=== PATIENT | male | born 1950 | race Caucasian/White ===

== ENCOUNTER 2017-09-04 13:41 | Inpatient (IN) | payer OTHER, MEDICARE ==
[~2017-09-04] VITALS: Ht 170.2 cm; Wt 81.8 kg
[~2017-09-04 13:41] MED LIST: LISINOPRIL AND1 TA1 PO
--- NOTE | 2017-09-04 13:51 | ED GENERAL ADULT ---
History of Present Illness General Chief Complaint: Syncope and Near-Syncope Stated Complaint: BIBA WITH SYNCOPE Source: patient, family Exam Limitations: no limitations Vital Signs & Intake/Output Vital Signs & Intake/Output Vital Signs Date Time Temp Pulse Resp B/P B/P Pulse O2 O2 Flow FiO2 Mean Ox Delivery Rate 09/04 1920 99.5 74 16 96/62 93 Room Air 09/04 1549 94 Room Air 09/04 1549 75 18 101/57 94 Room Air 09/04 1547 75 101/57 09/04 1351 100.7 80 18 103/59 94 Room Air Allergies Coded Allergies: NO KNOWN ALLERGIES (01/18/17) Reconcile Medications Lisinopril/Hydrochlorothiazide (Lisinopril-Hctz 20-12.5 MG Tab) 20 MG-12.5 MG TABLET 1 TAB PO BID BP (Reported) Magnesium Oxide (Magnesium) 400 MG CAPSULE 1 CAP PO BID SUPPLEMENT (Reported) Triage Nurses Notes Reviewed? yes Onset: Abrupt Duration: minute(s): Timing: single episode today Injury Environment: home Severity: moderate HPI: 66YO MALE with hx of hepatitis C BIBA to ED following syncopal episode at home prior to arrival. Patient states that he has had intermittent cough and congestion for the past month. He was treated with a course of antibiotics from his primary care doctor last month and felt improvement however his symptoms have returned. Patient currently complaining of cough productive of sputum which he cannot spit out. Patient reports intermittent fevers, chills, malaise. He is also experiencing weakness and lightheadedness when he gets up and stands after sitting. Today he was going to see his primary care doctor for the symptoms. He was sitting on a chair in a stack waiting for his when he passed out. Patient states that she was honking the car horn however he could not hear her because he passed out for seconds to a minute. found him and called for help. Patient did not fall or hit his head. He does report a generalized headache for the past 3 days. The patient denies abdominal pain, nausea, vomiting, diarrhea, chest pain, dyspnea, urinary symptoms. (Modesta NORWOOD,Magaly Rivera) Past History Travel History Traveled to [place] past 21 day No Medical History Any Pertinent Medical History? see below for history Hepatic: hepatitis C Surgical History Surgical History: non-contributory Psychosocial History What is your primary language Somali Family History Hx Contributory? No (Magaly Bush) Review of Systems Review of Systems Constitutional: Reports: see HPI. EENTM: Reports: see HPI. Respiratory: Reports: see HPI. Cardiovascular: Reports: see HPI. GI: Reports: no symptoms. Genitourinary: Reports: no symptoms. Musculoskeletal: Reports: no symptoms. Skin: Reports: no symptoms. Neurological/Psychological: Reports: see HPI. Hematologic/Endocrine: Reports: no symptoms. Immunologic/Allergic: Reports: no symptoms. All Other Systems: Reviewed and Negative (Modesta NORWOOD,Magaly Rivera) Physical Exam Physical Exam General Appearance: well developed/nourished, no apparent distress, alert, awake Head: atraumatic, normal appearance Eyes: Bilateral: normal appearance, PERRL, EOMI. Ears, Nose, Throat: normal pharynx, normal ENT inspection, hearing grossly normal Neck: normal inspection, supple, full range of motion Respiratory: normal breath sounds, no respiratory distress, lungs clear Cardiovascular: regular rate/rhythm, normal peripheral pulses Peripheral Pulses: 2+ radial (R), 2+ radial (L) Gastrointestinal: normal bowel sounds, soft, non-tender, no organomegaly Back: normal inspection, normal range of motion Extremities: normal inspection, normal range of motion, no edema Neurologic/Psych: no motor/sensory deficits, awake, alert, oriented x 3, vice president of human resources II- XII nml as tested Skin: intact, normal color, warm/dry Core Measures ACS in differential dx? Yes CVA/TIA Diagnosis: No Sepsis Present: No Sepsis Focused Exam Completed? No (Magaly Bush) Progress Differential Diagnoses I considered the following diagnoses in my evaluation of the patient: [Vasovagal syncope, orthostatic hypotension, acute coronary syndrome, sepsis, pneumonia, urinary tract infection, acute kidney injury, electrolyte abnormality, arrhythmia, endocarditis] Plan of Care: Orders Procedure Date/time Status Regular Diet 09/05 B Active CBC WITHOUT DIFFERENTIAL 09/05 06 Active BASIC ELECTROLYTES PLUS BUN&CR 09/05 0600 Active Vital Signs 09/04 1920 Active Pathway - chart 09/04 1748 Active House Staff 09/04 1748 Active MISTAKE 09/04 1703 Active Patient Data 09/04 1637 Active ED Holding Orders 09/04 1627 Active Admit to inpatient 09/04 1627 Active Code Status 09/04 1627 Active Intake & Output 09/04 1547 Active BLOOD CULTURE 09/04 1529 Active Add-on Test (ER Only) 09/04 1455 Active LACTIC ACID 09/04 1432 Complete MISTAKE 09/04 1344 Active URINALYSIS 09/04 1344 Active TROPONIN LEVEL 09/04 1344 Complete MAGNESIUM 09/04 1344 Complete COMPREHENSIVE METABOLIC PANEL 09/04 1344 Complete CBC WITHOUT DIFFERENTIAL 09/04 1344 Complete EKG 09/04 1344 Active VTE Mechanical Prophylaxis 09/04 UNK Active Current Medications Sig/Nereida Start time Last Medication Dose Stop Time Status Admin Magnesium Oxide 400 MG BID 09/04 2100 AC (Mag-Ox) Sodium Chloride 1,000 ML DAILY 09/04 1800 AC (Normal Saline 0.9%) 09/05 2219 Laboratory Tests 09/04/17 1432: Anion Gap 13, Estimated GFR 43 L, BUN/Creatinine Ratio 16.9, Glucose 113 H, Lactic Acid 0.9, Calcium 9.1, Magnesium 1.9, Total Bilirubin 1.1, AST 66 H, ALT 63, Alkaline Phosphatase 70, Troponin I < 0.01, Total Protein 7.7, Albumin 4.2, Globulin 3.5, Albumin/Globulin Ratio 1.2, CBC w Diff MAN DIFF ORDERED, RBC 4.96, MCV 91.5, MCH 31.8 H, MCHC 34.8, RDW 12.4, MPV 7.8, Gran % 87.2 H, Lymphocytes % 6.8 L, Monocytes % 5.6, Eosinophils % 0, Basophils % 0.4, Absolute Granulocytes 5.4, Segmented Neutrophils 80 H, Band Neutrophils 7 H, Absolute Lymphocytes 0.4 L, Lymphocytes 9 L, Monocytes 3, Absolute Monocytes 0.3, Eosinophils 1, Absolute Eosinophils 0, Absolute Basophils 0, Platelet Estimate VERIFIED BY SMEAR, Normocytic RBCs VERIFIED, Normochromic RBCs VERIFIED Microbiology 09/04 1709 BLOOD: Blood Culture - RECD 09/04 1650 BLOOD: Blood Culture - RECD Patient's head CT is WNL, he is neurologically intact without focal neurologic deficit. Chest x-ray shows no acute abnormality. Patient's orthostatic vital signs are positive, when he stood from sitting he had a near syncopal episode here in the ED and required assistance from JANEEN Spann and Dr. Guillen. Labs show bandemia and acute kidney injury. Patient is medicated with IV fluids. Given acute kidney injury, bandemia, syncopal episode at home today, orthostatic hypotension this patient requires hospital admission for further evaluation, IV fluids, possible IV antibiotics, cardiology consult, telemetry monitoring, possible infectious disease consult. The patient was seen and evaluated by Dr. Guillen who agrees with this plan. Case management recommend full admission. Spoke with hospitalist Dr. Knox regarding this patient's telemetry admission. Diagnostic Imaging: Viewed by Me: Radiology Read, CT Scan. Discussed w/RAD: Radiology Read, CT Scan. Radiology Impression: PATIENT: IRINA BOOTH PRESENT AGE: 66 PATIENT ACCOUNT NO: [id number] : 50 LOCATION: [facility] ORDERING PHYSICIAN: Magaly NORWOOD SERVICE DATE: 09/04/17 EXAM TYPE: CAT - CT HEAD WO IV CONTRAST EXAMINATION: CT HEAD WITHOUT CONTRAST CLINICAL INFORMATION: Headache with syncopal episode. COMPARISON: No relevant prior imaging. TECHNIQUE: Contiguous axial imaging was performed from the skull base to vertex without intravenous administration of contrast. DLP: 615.08 mGy-cm FINDINGS: There is no acute intracranial hemorrhage or abnormal extra-axial collection. No intracranial mass effect or midline shift. Lateral and third ventricles are normal. No hydrocephalus. Bledsoe-white matter differentiation is grossly preserved and there is no evidence of acute territorial infarct. The calvarium and skull base are intact. Mastoid air cells and middle ear cavities are well aerated. Visualized paranasal sinuses are well-aerated. IMPRESSION: Normal CT scan of the head. DICTATED BY: Phil Ordoñez MD DATE/TIME DICTATED:09/04/171426 U.S. COMMISSIONER:RITA DATE/TIME TRANSCRIBED:1426 CONFIDENTIAL, DO NOT COPY WITHOUT APPROPRIATE AUTHORIZATION. < Electronically signed in Other Vendor System> SIGNED BY: Phil Ordoñez MD 09/04/17 1432 CXR Impression: PATIENT: IRINA BOOTH PRESENT AGE: 66 PATIENT ACCOUNT NO: [id number] : 50 LOCATION: [facility] ORDERING PHYSICIAN: Magaly NORWOOD SERVICE DATE: 09/04/17 EXAM TYPE: RAD - XRY-CHEST XRAY, TWO VIEWS EXAMINATION: XR CHEST CLINICAL INFORMATION: Cough and syncope. COMPARISON: Chest 05/25/2015 TECHNIQUE: 2 views of the chest were obtained. FINDINGS: No significant abnormality is noted involving the heart, lungs, mediastinum, bony thorax or soft tissues. IMPRESSION: Unremarkable chest examination. DICTATED BY: Cl Mckeon MD DATE/TIME DICTATED:09/04/171433 U.S. COMMISSIONER:RITA DATE/TIME TRANSCRIBED:09/04/171433 CONFIDENTIAL, DO NOT COPY WITHOUT APPROPRIATE AUTHORIZATION. <Electronically signed in Other Vendor System> SIGNED BY: Cl Mckeon MD 09/04/17 1451 Initial ED EKG: sinus rhythm @81bpm, nonspecific ST changes Prior EKG: unchanged (08/21/13) (Magaly Bush) Departure Departure Disposition: STILL A PATIENT Condition: Stable Clinical Impression Primary Impression: Acute kidney injury Secondary Impressions: Bandemia Orthostatic hypotension Syncope Qualifiers: Syncope type: unspecified Qualified Code: R55 - Syncope and collapse Referrals: Aniket Hayward MD (PCP/Family) Departure Forms: Customer Survey General Discharge Information Admission Note Spoke With: June Knox MD Documentation of Exam: Documentation of any treatments & extenuating circumstances including Concerns Regarding Discharge (functional status, medication knowledge or non-compliance, living conditions, etc.) that warrant an admission rather than observation: [ acute kidney injury, bandemia, syncopal episode at home today, orthostatic hypotension requiring hospital admission for further evaluation, IV fluids, possible IV antibiotics, cardiology consult, telemetry monitoring, possible infectious disease consult.] (Magaly Bush) PA/CENTRAL LAB TECHNICIAN Co-Sign Statement Statement: ED Attending supervision documentation- [X] I saw and evaluated the patient. I have also reviewed all the pertinent lab results and diagnostic results. I agree with the findings and the plan of care as documented in the PA's/CENTRAL LAB TECHNICIAN's documentation. [] I have reviewed the ED Record and agree with the PA's/CENTRAL LAB TECHNICIAN's documentation. [] Additions or exceptions (if any) to the PAs/CENTRAL LAB TECHNICIAN's note and plan are summarized below: [] (Irving Guillen DO) Critical Care Note Critical Care Note Critical Care Time: 30-74 min (Magaly Bush)
--- NOTE | 2017-09-04 14:32 | CT SCAN REPORT ---
EXAMINATION: CT HEAD WITHOUT CONTRAST CLINICAL INFORMATION: Headache with syncopal episode. COMPARISON: No relevant prior imaging. TECHNIQUE: Contiguous axial imaging was performed from the skull base to vertex without intravenous administration of contrast. DLP: 615.08 mGy-cm FINDINGS: There is no acute intracranial hemorrhage or abnormal extra-axial collection. No intracranial mass effect or midline shift. Lateral and third ventricles are normal. No hydrocephalus. Bledsoe-white matter differentiation is grossly preserved and there is no evidence of acute territorial infarct. The calvarium and skull base are intact. Mastoid air cells and middle ear cavities are well aerated. Visualized paranasal sinuses are well-aerated. IMPRESSION: Normal CT scan of the head.
[2017-09-04 14:44] LABS: ABSOLUTE BASOPHIL COUNT 0 /CUMM (0.0-0.2); ABSOLUTE EOSINOPHIL COUNT 0 /CUMM (0.0-0.7); ABSOLUTE GRANULOCYTE CT 5.4 /CUMM (1.4-6.5); ABSOLUTE LYMPH COUNT 0.4 /CUMM (1.2-3.4); ABSOLUTE MONOCYTE COUNT 0.3 /CUMM (0.10-0.60); BASOPHIL % 0.4 % (0.0-2.0); EOSINOPHIL % 0 % (0-5); GRANULOCYTE % 87.2 % (42.2-75.2); HEMATOCRIT 45.4 % (42-52); MEAN CORPUSCULAR HGB 31.8 PG (27.0-31.0); MEAN CORPUSCULAR HGB CONC 34.8 G/DL (33.0-37.0); MEAN CORPUSCULAR VOLUME 91.5 FL (80.0-94.0); MEAN PLATELET VOLUME 7.8 FL (7.4-10.4); PLATELET COUNT 138 /CUMM (130-400); RBC DISTRIBUTION WIDTH 12.4 % (11.5-14.5); RED BLOOD CELL CT 4.96 /CUMM (4.70-6.10); WHITE BLOOD CELL COUNT 6.2 /CUMM (4.8-10.8)
--- NOTE | 2017-09-04 14:51 | RADIOLOGY REPORT ---
EXAMINATION: XR CHEST CLINICAL INFORMATION: Cough and syncope. COMPARISON: Chest 05/25/2015 TECHNIQUE: 2 views of the chest were obtained. FINDINGS: No significant abnormality is noted involving the heart, lungs, mediastinum, bony thorax or soft tissues. IMPRESSION: Unremarkable chest examination.
[2017-09-04] MEDS ORDERED: MAGNESIUM400 M1 PO (16:47)
[2017-09-04] MEDS ORDERED: LISINOPRIL-HCT1 EACH PO (16:48)
--- NOTE | 2017-09-04 18:46 | History & Physical ---
Marie SAAVEDRA,Latasha 09/04/17 2855: General Information and HPI Source of Information: patient, family Exam Limitations: no limitations History of Present Illness: Patient is 66-year-old male with past medical history of hypertension, palpitations (previous history of stress test which was reportedly negative), hepatitis C status post recent Harvoni treatment (sees Dr. Yeung) presenting this admission with chief complaint of episode of syncope. Patient reports that approximately 2 days prior to admission he was starting to feel dizzy. He reports that he felt he might be having cold with a dry cough and generalized headache and fever of 100.9. Patient states that he was feeling worse today and was going to his physician's office. Reports that when he was outside of his house he felt warm, dizzy and lightheaded and sat down in a chair on his porch. Patient's was present at time of interview and reports that she saw him slumped over in the chair at which point she walked over and found that he was not responsive for several minutes. After which patient reported to verbal and tactile stimuli. Patient denies feeling disoriented, bowel/bladder incontinence. Patient's denies witnessing any seizure like activity. Patient reports having poor appetite over the past week. Patient denies chest pain, palpitations, shortness of breath, blurry vision, n/v/c/d, dysuria/ hematuria. Patient denies sick contacts or recent travel. Denies smoking, alochol or illicit drug use. Patient's reports that he has had multiple tick bites in the recent past which she reports were likely on patient for less than 24 hours however is not entirely sure. Patient denies any allergies to medications. Reports taking lisonpril-hctz 20-12.5mg daily, magnesium oxide 400mg daily. Allergies/Medications Allergies: Coded Allergies: NO KNOWN ALLERGIES (01/18/17) Home Med list Losartan Potassium (Cozaar) 25 MG TABLET 1 TAB PO DAILY high blood pressure Magnesium Oxide (Magnesium) 400 MG CAPSULE 1 CAP PO BID SUPPLEMENT (Reported) Past History Travel History Traveled to [place] past 21 day No Medical History Neurological: NONE EENT: NONE Cardiovascular: hypertension Respiratory: NONE Gastrointestinal: NONE Hepatic: hepatitis C Renal: NONE Musculoskeletal: NONE Psychiatric: NONE Endocrine: NONE Blood Disorders: NONE Cancer(s): NONE Surgical History Surgical History: non-contributory Review of Systems Review of Systems Constitutional: Reports: see HPI. Exam & Diagnostic Data Last 24 Hrs of Vital Signs/I&O Vital Signs Date Time Temp Pulse Resp B/P B/P Pulse O2 O2 Flow FiO2 Mean Ox Delivery Rate 09/04 1920 99.5 74 16 96/62 93 Room Air 09/04 1549 94 Room Air 09/04 1549 75 18 101/57 94 Room Air 09/04 1547 75 101/57 09/04 1351 100.7 80 18 103/59 94 Room Air Intake & Output 09/04 1600 09/04 0800 09/04 0000 Intake Total 1000 Output Total Balance 1000 Intake, IV 1000 Patient 170 lb Weight Weight Estimated Measurement Method Physical Exam General Appearance Alert, Oriented X3, Cooperative, No Acute Distress Skin No Rashes Skin Temp/Moisture Exam: Warm/Dry Sepsis Skin Exam (color): Normal for Ethnicity HEENT Atraumatic, PERRLA, EOMI, Mucous Membr. moist/pink Cardiovascular Regular Rate, Normal S1, Normal S2 Lungs Clear to Auscultation, Normal Air Movement Abdomen Normal Bowel Sounds, Soft, No Tenderness Neurological Normal Speech, Strength at 5/5 X4 Ext, Normal Tone, Sensation Intact, Cranial Nerves 3-12 NL, Reflexes 2+ Extremities No Clubbing, No Cyanosis, No Edema, Normal Pulses, No Tenderness/ Swelling Last 24 Hrs of Labs/Neol: Laboratory Tests 09/04/17 1432: Anion Gap 13, Estimated GFR 43 L, BUN/Creatinine Ratio 16.9, Glucose 113 H, Lactic Acid 0.9, Calcium 9.1, Magnesium 1.9, Total Bilirubin 1.1, AST 66 H, ALT 63, Alkaline Phosphatase 70, Troponin I < 0.01, Total Protein 7.7, Albumin 4.2, Globulin 3.5, Albumin/Globulin Ratio 1.2, CBC w Diff MAN DIFF ORDERED, RBC 4.96, MCV 91.5, MCH 31.8 H, MCHC 34.8, RDW 12.4, MPV 7.8, Gran % 87.2 H, Lymphocytes % 6.8 L, Monocytes % 5.6, Eosinophils % 0, Basophils % 0.4, Absolute Granulocytes 5.4, Segmented Neutrophils 80 H, Band Neutrophils 7 H, Absolute Lymphocytes 0.4 L, Lymphocytes 9 L, Monocytes 3, Absolute Monocytes 0.3, Eosinophils 1, Absolute Eosinophils 0, Absolute Basophils 0, Platelet Estimate VERIFIED BY SMEAR, Normocytic RBCs VERIFIED, Normochromic RBCs VERIFIED Microbiology 09/04 1709 BLOOD: Blood Culture - RECD 09/04 165 BLOOD: Blood Culture - RECD Assessment/Plan Assessment: Patient is 66-year-old male with past medical history of hypothyroidism, palpitations (previous history of stress test which was reportedly negative), hepatitis C status post recent Harvoni treatment (sees Dr. Yeung) presenting this admission with chief complaint of episode of syncope. Patient will be admitted to telemetry for management of the followin. Syncope likely secondary to dehydration in setting of recent upper respiratory infection, however will keep on telemtetry to rule out neurocardiac etiology 2. [place] - prerenal azotemia likely secondary to dehydration 3. Chronic conditions: HTN, Hep C s/p Harvoni Tx Plan: Admit to telemetry Continuous tele monitoring Repeat EKG in AM Orthostatic vitals Monitor temp Repeat CBC in AM Repeat BEP - follow creatinine Avoid nephrotoxic agents IV fluid hydration Will hold antihypertensive medication today Will consult cardiology in AM DVT PPx: ALPS Diet: Regular diet Code: Full code As Ranked By This Provider Problem List: 1. Syncope Qualifiers Syncope type: unspecified Qualified Code: R55 - Syncope and collapse 2. Acute kidney injury Core Measures/Misc (12/23) Acute Coronary Syndrome ACS Diagnosis: No Congestive Heart Failure Congestive Heart Failure Diagnosis No Cerebrovascular Accident CVA/TIA Diagnosis: No VTE (View Protocol) VTE Risk Factors Age>40 No Mechanical VTE Prophylaxis d/t N/A MechProphylax Ordered No VTE Pharm Prophylaxis d/t NA PharmProphylax ordered Sepsis (View protocol) Sepsis Present: No If YES complete Sepsis Event Note If YES complete Sepsis Event Note Richard Pastrana 09/04/172134: General Information and HPI MD Statement: I have seen and personally examined IRINA MORGAN and documented this H&P. The patient is a 66 year old M who presented with a patient stated chief complaint of []. Core Measures/Misc (12/23) Sepsis (View protocol) If YES complete Sepsis Event Note If YES complete Sepsis Event Note Resident Review Statement Resident Statement: examined this patient, discussed with international operations manager, agreed with international operations manager Other Findings: Mr. Morgan is a 66-year-old gentleman with significant past medical history of hepatitis C [follows with Dr. Yeung] recently completed treatment with harvoni, and hypertension who presents to the hospital after syncopal episode. The history is corroborated by the patient's . The patient has been complaining of an intermittent cough for the last few days, along with subjective fevers and chills. He states that he checked his blood pressure at home and he was lower than he normally is and he held his hydrochlorothiazide/lisinopril. Of note, he is previously treated a month ago with a course of antibiotics for similar complaints. The patient states that he was on the way to the doctor's office again and felt a little lightheaded, he sat down and his noted that he passed out. The patient did not fall or hit his head. The patient woke up to his shaking him. He was AAO 3, not confused, no loss of bladder or bowel function. Additionally, he notes that he is been lightheaded/dizzy with standing for the last few days. He also notes decreased by mouth intake over the last few days since he has been sick. Otherwise, he denied any other recent presyncopal symptoms as indicated above. On admission, vitals: T 100.7, HR 80, BP 103/59, RR 18. Physical exam as dictated above, unremarkable. Labs revealed unremarkable: H/H 15.8/45.4 segmented neutrophils 80, with 7 bands. BUN/Cr 27/1.6. AST 66, ALT [address] scan was unremarkable. Problem list assessment and plan Syncope * Most likely secondary to decreased by mouth intake and hypotension, likely secondary to an infectious etiology given his left shift and bands in spite of no elevated white count. Of note he was also febrile. * We will admit for fluid hydration with IV fluids and hold off the patient's by mouth antihypertensives now. * As we do have a reasonable etiology of the patient's syncope, especially with [place] further supporting hypotension, we will hold off on further investigation for now. To be reassessed tomorrow morning. Full code Regular diet Pain pathway as ordered Alps for DVT prophylaxis June Knox MD 09/05/17 1128: Core Measures/Misc (12/23) Sepsis (View protocol) If YES complete Sepsis Event Note If YES complete Sepsis Event Note Attending MD Review Statement Attending Statement Attending MD Statement: examined this patient, discuss w/resident/PA/BIOMEDICAL REPAIR TECHNICIAN, agreed w/resident/PA/BIOMEDICAL REPAIR TECHNICIAN, reviewed EMR data (avail) Attending Assessment/Plan: 66M PMH HCV completed Harvoni, HTN presenting with syncopal episode. Patient had URI symptoms 3 weeks ago, completed a course of antibiotics, and felt better. However for the past 4-5 days he has been weak, with malaise, URI symptoms, dry cough, and decreased PO intake. He was sitting on his porch when he syncopized, witness by , awoke after 2 minutes and did not hit head. He did not display any seizure activity or post-ictal symptoms. He currently only feels weak but has no other complaints. He remembers passing out and does not remember and preceding chest pain, SOB, palpitations, or headache. He is clinically dehydrated but exam otherwise normal. 1. Syncope 2. [place] 3. Dehydration 4. Viral syndrome Plan - Continue on general medicine - No antibiotics - IV hydration - Echocardiogram - Monitor renal function - Cardiology consult - DVT PPx - Continue home medications
[2017-09-04 19:20] VITALS: BP 96/62
[2017-09-04 23:21] VITALS: BP 98/64
[2017-09-05 06:24] VITALS: BP 104/64
--- NOTE | 2017-09-05 07:29 | PN- Housestaff ---
Kymberly Rivera 09/05/17 0729: Subjective Follow-up For: - Complaints: no complaints Subjective: I have seen and examined the patient today morning, no new complaints, remains afebrile overnight, vitals stable, saturating 95% on room air. Review of Systems Constitutional: Reports: see HPI. Objective Last 24 Hrs of Vital Signs/I&O Vital Signs Date Time Temp Pulse Resp B/P B/P Pulse O2 O2 Flow FiO2 Mean Ox Delivery Rate 09/05 0624 98.8 61 20 104/64 93 Room Air 09/04 2321 98.5 78 16 98/64 94 Room Air 09/04 1920 99.5 74 16 96/62 93 Room Air 09/04 1549 94 Room Air 09/04 1549 75 18 101/57 94 Room Air 09/04 1547 75 101/57 09/04 1351 100.7 80 18 103/59 94 Room Air Intake & Output 09/05 0800 09/05 0000 09/04 1600 Intake Total 259 485 9513 Output Total 700 125 Balance 403 225 4861 Intake, IV 390 231 4122 Intake, Oral 240 240 Number 0 Bowel Movements Output, Urine 700 125 Patient 80.428 kg 77.111 kg Weight Weight Bed scale Estimated Measurement Method Physical Exam General Appearance: Alert, Oriented X3, Cooperative, No Acute Distress Skin: No Rashes, No Breakdown Cardiovascular: Regular Rate, Normal S1, Normal S2 Lungs: Normal Air Movement Abdomen: Normal Bowel Sounds, Soft, No Tenderness Extremities: No Clubbing, No Cyanosis, No Edema Vascular: Normal Pulses Current Medications: Current Medications Sig/Nereida Start time Last Medication Dose Route Stop Time Status Admin Acetaminophen 650 MG Q4P PRN 09/04 2230 AC 09/04 PO 223 Magnesium Oxide 400 MG BID 09/04 2100 AC 09/04 PO 2014 Sodium Chloride 1,000 ML DAILY 09/04 1800 AC 09/04 IV 09/05 2219 2014 Sodium Chloride 1,000 ML BOLUS ONE 09/04 1615 DC 09/04 IV 09/04 1714 1725 Sodium Chloride 1,000 ML BOLUS ONE 09/04 1500 DC 09/04 IV 09/04 1559 1522 Last 24 Hrs of Lab/Noel Results Last 24 Hrs of Labs/Mics: Laboratory Tests 09/05/17 0630: Sodium Pending, Potassium Pending, Chloride Pending, Carbon Dioxide Pending, Anion Gap Pending, BUN Pending, Creatinine Pending, BUN/Creatinine Ratio Pending , CBC w Diff Pending, WBC Pending, RBC Pending, Hgb Pending, Hct Pending, MCV Pending, MCH Pending, MCHC Pending, RDW Pending, Plt Count Pending, MPV Pending 09/04/172219: Urine Color YEL, Urine Clarity HAZY H, Urine pH 6.0, Ur Specific [place] 1.020, Urine Protein 30 H, Urine Ketones NEG, Urine Nitrite NEG, Urine Bilirubin NEG, Urine Urobilinogen 0.2, Ur Leukocyte Esterase SMALL H, Ur Microscopic SEDIMENT EXAMINED, Urine RBC FEW H, Urine WBC 3-5 H, Ur Epithelial Cells FEW, Urine Bacteria FEW H, Urine Mucus RARE, Urine Hemoglobin TRACE-INTACT H, Urine Glucose NEG 09/04/17 1432: Anion Gap 13, Estimated GFR 43 L, BUN/Creatinine Ratio 16.9, Glucose 113 H, Lactic Acid 0.9, Calcium 9.1, Magnesium 1.9, Total Bilirubin 1.1, AST 66 H, ALT 63, Alkaline Phosphatase 70, Troponin I < 0.01, Total Protein 7.7, Albumin 4.2, Globulin 3.5, Albumin/Globulin Ratio 1.2, CBC w Diff MAN DIFF ORDERED, RBC 4.96, MCV 91.5, MCH 31.8 H, MCHC 34.8, RDW 12.4, MPV 7.8, Gran % 87.2 H, Lymphocytes % 6.8 L, Monocytes % 5.6, Eosinophils % 0, Basophils % 0.4, Absolute Granulocytes 5.4, Segmented Neutrophils 80 H, Band Neutrophils 7 H, Absolute Lymphocytes 0.4 L, Lymphocytes 9 L, Monocytes 3, Absolute Monocytes 0.3, Eosinophils 1, Absolute Eosinophils 0, Absolute Basophils 0, Platelet Estimate VERIFIED BY SMEAR, Normocytic RBCs VERIFIED, Normochromic RBCs VERIFIED Microbiology 09/05 2219 URINE ROUT: Urine Culture - RECD 09/04 1709 BLOOD: Blood Culture - RECD 09/04 1649 BLOOD: Blood Culture - RECD Lines/Diet/Fluids Restraints: none Assessment/Plan Assessment: Mr. Bonilla is a 66-year-old male presented with chief complaint of syncope. He stated that on the way to his doctor's office, he felt lightheaded and sat down and as per his he passed out for a few minutes, did not have any fall or any head trauma, he woke up after his shaking him up, did not have any confusion, loss or bowel or bladder control, he was alert and oriented upon waking up. He notes that he has been feeling relatively lightheaded and dizzy for last few days. He also noted his blood pressure to be a little lower side therefore he himself had his hydrochlorothiazide/lisinopril recently. Past medical history significant for hypertension, palpitations (previous history of stress test which was negative), hepatitis C status post her wanting treatment. He was febrile up to 100.7 on admission, heart rate of 80, blood pressure of 103 /59, respiratory rate of 18. Did not have any white count, H/H of 15.8/45.4, platelets of 138. His sodium was low at 135 (baseline sodium 140), potassium of 3.8, BUN/ creatinine 27/1.6 (baseline creatinine 1.0) Of note he did have segmented neutrophils about 80 and 7 bands CXR did not show any acute cardiopulmonary findings. Head CT did not show any acute intracranial findings. He was admitted to equipment monitor phototypesetting due to his episode of syncope. #1 Syncope Possible differential and cardiogenic/neurogenic, could be due to his decreased by mouth intake and dehydration, the dehydration could be worsened by an infectious etiology with the background of mild fever, bandemia and left shift, continue IV hydration, hold all antihypertensives for now, continue to follow cultures, continue to monitor vitals, continue to monitor telemetry for any possible arrhythmias. Neurogenic cause of syncope seems less likely as he did not have any seizures, or loss of bowel or bladder control or other focal neurological deficits.Will obtain echo. #2 [place]. Patient's creatinine has been elevated up to 1.6, most likely prerenal due to dehydration, continue IV hydration and continue to monitor creatinine. #3 Hyponatremia - Mild hyponatremia with sodium of 135, will check serum osmolality No hyperglycemia that can falsely lower sodium, he is on thiazide at home, this could be other cause of hyponatremia, will check urine lytes, will ct to hold antihypertensives meds. #4 Transaminitis Mildly elevated AST, could be secondary to infection versus alcohol use, will ct ot monitor. #5 Thrombocytopenia. platelets noted to be 138, baseline between 230 and 240, could be secondary to some form of infection. #6 Hypotension : again 2/2 to dehydration/ infection cannot be completely ruled out, ct iv hydration, orthostatic vitals signs. #7 Dry Cough Possibly 2/2 to lisinopril, per cardio can consider switching to ARB's to prevent side effect of dry cough. FC Regular Diet dvt Px ALPS Problem List: 1. Orthostatic hypotension 2. Syncope 3. Bandemia 4. Acute kidney injury Pain Ratin Pain Location: .. Pain Goal: Remain pain free Pain Plan: tylenol Tomorrow's Labs & Rationales: cbc, bep Lynne SAAVEDRA,Eula 09/05/17 1121: Attending MD Review Statement Attending Statement Attending MD Statement: examined this patient, discuss w/resident/PA/PRIVATE BRANCH EXCHANGE OPERATOR, agreed w/resident/PA/PRIVATE BRANCH EXCHANGE OPERATOR, reviewed EMR data (avail), discussed with nursing, discussed with case mgmt, reviewed images Attending Assessment/Plan: 66-year-old male past medical history of hypertension and hepatitis C that was treated with Harvoni. He is here with an episode of syncope. He has been having a dry cough and feeling like a viral URI and the thought yesterday was that he was dehydrated, orthostatic and hence had the episode. His chest x-ray and CT have been negative thus far. We'll get an echocardiogram and will have cardiology clear him. We've held the lisinopril and hydrochlorothiazide and are hydrating him for the AUST[place]. And will follow-up.
[2017-09-05 08:49] LABS: ABSOLUTE BASOPHIL COUNT 0 /CUMM (0.0-0.2); ABSOLUTE EOSINOPHIL COUNT 0 /CUMM (0.0-0.7); ABSOLUTE GRANULOCYTE CT 3.2 /CUMM (1.4-6.5); ABSOLUTE LYMPH COUNT 0.4 /CUMM (1.2-3.4); ABSOLUTE MONOCYTE COUNT 0.4 /CUMM (0.10-0.60); BASOPHIL % 0.5 % (0.0-2.0); EOSINOPHIL % 0.1 % (0-5); GRANULOCYTE % 79.4 % (42.2-75.2); MEAN CORPUSCULAR HGB 31.8 PG (27.0-31.0); MEAN CORPUSCULAR HGB CONC 34.6 G/DL (33.0-37.0); MEAN PLATELET VOLUME 8.2 FL (7.4-10.4); PLATELET COUNT 117 /CUMM (130-400); RBC DISTRIBUTION WIDTH 12.8 % (11.5-14.5); WHITE BLOOD CELL COUNT 4.1 /CUMM (4.8-10.8)
[2017-09-05 09:10] LABS: HEMATOCRIT 39.5 % (42-52)
[2017-09-05 14:20] VITALS: BP 124/72
--- NOTE | 2017-09-05 15:01 | Cons- Cardiology ---
General Information and HPI History of Present Illness: Mr. Chad Morgan is a 66-year-old male with a history of remote tobacco use, hepatitis C s/p Harvoni treatment, hypertension on combination brionna/ diuretic therapy (lisinopril-HCTZ 20-12.5 mg twice daily), dyslipidemia (low HDL ), and palpitations a few years ago with a negative cardiac evaluation ( echocardiogram, stress test) who presented to the ED following a syncopal episode at home. He denies any recent new medications or changes to the dosages of his existing medications. He states that his appetite is normal, but that he has been on a "diet" over the past couple of months and has lost 15 pounds as a result and is compliant with his medications. He was treated for upper respiratory type symptoms approximately 1 month ago with penicillin and felt improved, but not 100%" and approximately 48 hours prior to his ED evaluation he felt he might be "coming down with something again ", experiencing feverish feelings with a temperature documented at 100.9, a dry cough, and "dizziness/lightheadedness" and made an appointment to see his primary care physician (Aniket Hayward MD). After leaving his house to get to the car where his was waiting for him, he became warm, dizzy, and lightheaded and opted to sit down in a chair on his porch. His left the car and went to the porch and found him slumped over in the chair and found him to be unresponsive for several minutes, after which he responded to verbal and tactile stimuli. The patient states that when he "came to" he was aware of his surroundings, had no complaints, or any incontinence. The patient denied any sick contacts or recent travel. His reported that he had multiple tick bites recently, but thinks they were all recognized and removed within 24 hours. Allergies/Medications Allergies: Coded Allergies: NO KNOWN ALLERGIES (01/18/17) Home Med List: Lisinopril/Hydrochlorothiazide (Lisinopril-Hctz 20-12.5 MG Tab) 20 MG-12.5 MG TABLET 1 TAB PO BID BP (Reported) Magnesium Oxide (Magnesium) 400 MG CAPSULE 1 CAP PO BID SUPPLEMENT (Reported) Review of Systems Review of Systems: A 14 point system review was obtained was noncontributory, other than as above. Past History Travel History Traveled to [place] past 21 day No Medical History Blood Transfusion Hx: No Neurological: NONE EENT: NONE Cardiovascular: hypertension Respiratory: NONE Gastrointestinal: NONE Hepatic: hepatitis C Renal: NONE Musculoskeletal: NONE Psychiatric: NONE Endocrine: NONE Blood Disorders: NONE Cancer(s): NONE CHEF DE FROID/Reproductive: NONE Surgical History Surgical History: non-contributory Psychosocial History Where Do You Live? Home Services at Home: None Smoking Status: Former Smoker Exam & Diagnostic Data Vital Signs and I&O Vital Signs Date Time Temp Pulse Resp B/P B/P Pulse O2 O2 Flow FiO2 Mean Ox Delivery Rate 09/05 1420 98.7 83 20 124/72 95 09/05 0624 98.8 61 20 104/64 93 Room Air 09/04 2321 98.5 78 16 98/64 94 Room Air 09/04 1920 99.5 74 16 96/62 93 Room Air 09/04 1549 94 Room Air 09/04 1549 75 18 101/57 94 Room Air 09/04 1547 75 101/57 Intake & Output 09/05 1600 09/05 0800 09/05 0000 09/04 1600 09/04 0800 09/04 0000 Intake Total 360 087 132 8583 Output Total 700 125 Balance 360 237 628 1053 Intake, IV 565 725 3436 Intake, Oral 360 240 240 Number 0 Bowel Movements Output, Urine 700 125 Patient 177 lb 170 lb Weight Weight Bed scale Estimated Measurement Method Physical Exam: Well-developed, well-nourished male in no acute distress. Vital signs: See above. HEENT: Normocephalic, atraumatic, EOMI, slightly dry mucous membranes. Neck: No JVD, no bruits. Lungs: Clear to auscultation bilaterally. Heart: S1, S2 with a soft (grade 1/6) systolic murmur. No gallop or rub. PMI fifth ICS MCL. Abdomen: Soft, nontender, positive bowel sounds. Extremities: No edema. Labs/Noel Results: Laboratory Tests 09/05 09/04 0630 2220 Chemistry Sodium (137 - 145 mmol/L) 138 Potassium (3.5 - 5.1 mmol/L) 4.2 Chloride (98 - 107 mmol/L) 103 Carbon Dioxide (22 - 30 mmol/L) 27 Anion Gap (5 - 16) 8 BUN (9 - 20 mg/dL) 23 H Creatinine (0.7 - 1.2 mg/dL) 1.2 Estimated GFR (>60 ml/min) > 60 BUN/Creatinine Ratio (7 - 25 %) 19.2 Hematology CBC w Diff NO MAN DIFF REQ WBC (4.8 - 10.8 /CUMM) 4.1 L RBC (4.70 - 6.10 /CUMM) 4.30 L Hgb (14.0 - 18.0 G/DL) 13.7 L Hct (42 - 52 %) 39.5 L MCV (80.0 - 94.0 FL) 92.0 MCH (27.0 - 31.0 PG) 31.8 H MCHC (33.0 - 37.0 G/DL) 34.6 RDW (11.5 - 14.5 %) 12.8 Plt Count (130 - 400 /CUMM) 117 L MPV (7.4 - 10.4 FL) 8.2 Gran % (42.2 - 75.2 %) 79.4 H Lymphocytes % (20.5 - 51.1 %) 10.7 L Monocytes % (1.7 - 9.3 %) 9.3 Eosinophils % (0 - 5 %) 0.1 Basophils % (0.0 - 2.0 %) 0.5 Absolute Granulocytes (1.4 - 6.5 /CUMM) 3.2 Absolute Lymphocytes (1.2 - 3.4 /CUMM) 0.4 L Absolute Monocytes (0.10 - 0.60 /CUMM) 0.4 Absolute Eosinophils (0.0 - 0.7 /CUMM) 0 Absolute Basophils (0.0 - 0.2 /CUMM) 0 Urines Urine Color (YEL,AMB,STR) YEL Urine Clarity (CLEAR) HAZY H Urine pH (5.0 - 8.0) 6.0 Ur Specific [place] (1.001 - 1.035) 1.020 Urine Protein (NEG,<30 MG/DL) 30 H Urine Ketones (NEG) NEG Urine Nitrite (NEG) NEG Urine Bilirubin (NEG) NEG Urine Urobilinogen (0.1 - 1.0 EU/dl) 0.2 Ur Leukocyte Esterase (NEG) SMALL H Ur Microscopic SEDIMENT EXAMINED Urine RBC (0 - 5 /HPF) FEW H Urine WBC (0 - 2 /HPF) 3-5 H Ur Epithelial Cells (NONE,FEW) FEW Urine Bacteria (NEG/NONE) FEW H Urine Mucus (FEW,NONE) RARE Urine Hemoglobin (NEG) TRACE-INTACT H Urine Glucose (N MG/DL) NEG 09/04 1432 Chemistry Sodium (137 - 145 mmol/L) 135 L Potassium (3.5 - 5.1 mmol/L) 3.8 Chloride (98 - 107 mmol/L) 96 L Carbon Dioxide (22 - 30 mmol/L) 26 Anion Gap (5 - 16) 13 BUN (9 - 20 mg/dL) 27 H Creatinine (0.7 - 1.2 mg/dL) 1.6 H Estimated GFR (>60 ml/min) 43 L BUN/Creatinine Ratio (7 - 25 %) 16.9 Glucose (65 - 99 mg/dL) 113 H Lactic Acid (0.7 - 2.1 mmol/L) 0.9 Calcium (8.4 - 10.2 mg/dL) 9.1 Magnesium (1.6 - 2.3 mg/dL) 1.9 Total Bilirubin (0.2 - 1.3 mg/dL) 1.1 AST (17 - 59 U/L) 66 H ALT (21 - 72 U/L) 63 Alkaline Phosphatase (< 127 U/L) 70 Troponin I (<0.11 ng/ml) < 0.01 Total Protein (6.3 - 8.2 g/dL) 7.7 Albumin (3.5 - 5.0 g/dL) 4.2 Globulin (1.9 - 4.2 gm/dL) 3.5 Albumin/Globulin Ratio (1.1 - 2.2 %) 1.2 Hematology CBC w Diff MAN DIFF ORDERED WBC (4.8 - 10.8 /CUMM) 6.2 RBC (4.70 - 6.10 /CUMM) 4.96 Hgb (14.0 - 18.0 G/DL) 15.8 Hct (42 - 52 %) 45.4 MCV (80.0 - 94.0 FL) 91.5 MCH (27.0 - 31.0 PG) 31.8 H MCHC (33.0 - 37.0 G/DL) 34.8 RDW (11.5 - 14.5 %) 12.4 Plt Count (130 - 400 /CUMM) 138 MPV (7.4 - 10.4 FL) 7.8 Gran % (42.2 - 75.2 %) 87.2 H Lymphocytes % (20.5 - 51.1 %) 6.8 L Monocytes % (1.7 - 9.3 %) 5.6 Eosinophils % (0 - 5 %) 0 Basophils % (0.0 - 2.0 %) 0.4 Absolute Granulocytes (1.4 - 6.5 /CUMM) 5.4 Segmented Neutrophils (42.2 - 75.2 %) 80 H Band Neutrophils (0.0 - 5.0 %) 7 H Absolute Lymphocytes (1.2 - 3.4 /CUMM) 0.4 L Lymphocytes (20.5 - 51.1 %) 9 L Monocytes (1.7 - 9.3 %) 3 Absolute Monocytes (0.10 - 0.60 /CUMM) 0.3 Eosinophils (0 - 5.0 %) 1 Absolute Eosinophils (0.0 - 0.7 /CUMM) 0 Absolute Basophils (0.0 - 0.2 /CUMM) 0 Platelet Estimate (ADEQUATE) VERIFIED BY SMEAR Normocytic RBCs VERIFIED Normochromic RBCs VERIFIED Diagnostic Data EKG Results 09/04/2017: Sinus rhythm and within normal limits. Faster rate but no other significant change when compared to previous tracing from 08/21/2013. CXR Results 09/04/2017: No cardiopulmonary process. Other Results Head CT 09/04/2017: No acute intracranial process. Assessment/Plan Assessment/Plan [id number] w/ hx of remote tob use, hep C s/p Harvoni Rx, HTN on lisinopril-HCTZ 20-12.5 mg 2x daily, low HDL, & palpitations a few years ago w/ a negative cardiac evaluation (echocardiogram, stress test) who presented to the ED following a syncopal episode at home. He has been on a diet and lost 15 pounds over the past couple of months, has been battling upper respiratory symptoms, claims compliance to his medications, and on presentation had laboratory work c/w intravascular depletion. Suspect that the etiology for his syncopal episode was multifactorial and a combination diet, URI symptoms, and medications (acei/HCTZ). Naturally, he does have risk factors for coronary artery disease and admission to telemetry was appropriate. Recommendations: * Continue on telemetry. * Continue to hydrate. * Continue to hold his combination lisinopril/HCTZ and consider changing this if his hypertension requires further treatment. While he has been on the brionna inhibitor for at least a year and has been experiencing a "dry cough" since April of this year. Would consider discontinuing the lisinopril and if needed starting him on an angiotensin receptor donell. * Would also consider decreasing or discontinuing diuretic therapy in light of his presentation. * Would obtain an echocardiogram to assess his left ventricular systolic/ diastolic function, degree of left ventricular hypertrophy, etc. * DVT prophylaxis. Further recommendations will follow, Thank you. Consult Acknowledgment - Thank you for your consult request.
[2017-09-05 22:05] VITALS: BP 96/70
[2017-09-06 06:40] VITALS: BP 128/66
--- NOTE | 2017-09-06 07:20 | PN- Housestaff ---
Kymberly Rivera 09/06/17 0719: Subjective Follow-up For: syncope 2/2 to dehydration with [place] Complaints: no complaints Subjective: seen amd examined the patient today,doing well, no complaints, anticipated d/c today Review of Systems Constitutional: Reports: see HPI. Objective Last 24 Hrs of Vital Signs/I&O Vital Signs Date Time Temp Pulse Resp B/P B/P Pulse O2 O2 Flow FiO2 Mean Ox Delivery Rate 09/06 0640 98.9 71 20 128/66 95 Room Air 09/05 2205 99.1 64 20 96/70 96 09/05 1420 98.7 83 20 124/72 95 Intake & Output 09/06 0800 09/06 0000 09/05 1600 Intake Total 150 1000 1160 Output Total Balance 150 1000 1160 Intake, IV 150 600 500 Intake, Oral 400 660 Number 0 1 Bowel Movements Patient 81.788 kg Weight Physical Exam General Appearance: Alert, Oriented X3, Cooperative, No Acute Distress HEENT: Atraumatic, PERRLA, EOMI Lymphatic: no lad Cardiovascular: Normal S1, Normal S2, No Murmurs Lungs: Clear to Auscultation, Normal Air Movement Abdomen: Normal Bowel Sounds, Soft, No Tenderness Neurological: Strength at 5/5 X4 Ext, Normal Tone, Sensation Intact, Cranial Nerves 3-12 NL Extremities: No Clubbing, No Cyanosis, No Edema, Normal Pulses Vascular: Normal Pulses Current Medications: Current Medications Sig/Nereida Start time Last Medication Dose Route Stop Time Status Admin Acetaminophen 650 MG .STK-MED ONE 09/05 1908 DC PO 09/05 1909 Acetaminophen 650 MG Q4P PRN 09/04 2230 AC 09/06 PO 0458 Magnesium Oxide 400 MG BID 09/04 2100 AC 09/05 PO 2133 Patient Medication 1 ED ONE ONE 09/05 1630 DC Teaching ED 09/05 1631 Sodium Chloride 1,000 ML DAILY 09/04 1800 DC 09/05 IV 09/05 2219 1130 Last 24 Hrs of Lab/Noel Results Last 24 Hrs of Labs/Mics: Laboratory Tests 09/06/17 0637: Sodium Pending, Potassium Pending, Chloride Pending, Carbon Dioxide Pending, Anion Gap Pending, BUN Pending, Creatinine Pending, BUN/Creatinine Ratio Pending , CBC w Diff Pending, WBC Pending, RBC Pending, Hgb Pending, Hct Pending, MCV Pending, MCH Pending, MCHC Pending, RDW Pending, Plt Count Pending, MPV Pending Lines/Diet/Fluids Restraints: none Assessment/Plan Assessment: Mr. Bonilla is a 66-year-old male presented with chief complaint of syncope. He stated that on the way to his doctor's office, he felt lightheaded and sat down and as per his he passed out for a few minutes, did not have any fall or any head trauma, he woke up after his shaking him up, did not have any confusion, loss or bowel or bladder control, he was alert and oriented upon waking up. He notes that he has been feeling relatively lightheaded and dizzy for last few days. He also noted his blood pressure to be a little lower side therefore he himself had his hydrochlorothiazide/lisinopril recently. Past medical history significant for hypertension, palpitations (previous history of stress test which was negative), hepatitis C status post her wanting treatment. He was febrile up to 100.7 on admission, heart rate of 80, blood pressure of 103 /59, respiratory rate of 18. Did not have any white count, H/H of 15.8/45.4, platelets of 138. His sodium was low at 135 (baseline sodium 140), potassium of 3.8, BUN/ creatinine 27/1.6 (baseline creatinine 1.0) Of note he did have segmented neutrophils about 80 and 7 bands CXR did not show any acute cardiopulmonary findings. Head CT did not show any acute intracranial findings. He was admitted to flute polisher due to his episode of syncope. #1 Syncope Possible differential and cardiogenic/neurogenic, could be due to his decreased by mouth intake and dehydration, the dehydration could be worsened by an infectious etiology with the background of mild fever, bandemia and left shift, continue IV hydration, hold all antihypertensives for now, continue to follow cultures, continue to monitor vitals, continue to monitor telemetry for any possible arrhythmias. Neurogenic cause of syncope seems less likely as he did not have any seizures, or loss of bowel or bladder control or other focal neurological deficits.Will obtain echo. #2 [place]. Patient's creatinine back to baseline 0.9, most likely prerenal due to dehydration, improved with hydration. #3 Hyponatremia - resolved #4 Transaminitis Mildly elevated AST, could be secondary to infection versus alcohol use, will ct ot monitor. #5 Thrombocytopenia. platelets noted to be 138, baseline between 230 and 240, could be secondary to some form of infection. #6 Hypotension : resovled - was 2/2 to dehydration/ infection cannot be completely ruled out, d/c iv hydration. stable for d/c #7 Dry Cough Possibly 2/2 to lisinopril, per cardio will switch to ARB's to prevent side effect of dry cough. FC Regular Diet dvt Px ALPS Problem List: 1. Acute kidney injury 2. Chest wall pain 3. Bandemia 4. Syncope 5. Orthostatic hypotension Pain Ratin Pain Location: none Pain Goal: Remain pain free Pain Plan: current Tomorrow's Labs & Rationales: not needed Discharge Plan Discharge Disposition: home Stable for Discharge? Yes Anticipated Discharge (Day): today If Discharged Today/In 24 Hrs: CMR done Eula Batista MD 09/06/17 1349: Attending MD Review Statement Attending Statement Attending MD Statement: examined this patient, discuss w/resident/PA/FOLDING MACHINE OPERATOR, agreed w/resident/PA/FOLDING MACHINE OPERATOR, reviewed EMR data (avail), discussed with nursing, discussed with case mgmt, reviewed images Attending Assessment/Plan: Patient feels well. No more episodes of nausea or syncope. Appreciate cardiology consult. Patient has been borderline hypotensive and normotensive over here and given the cough and the CACHORRO inhibitor because the switch him to Cozaar at the lowest dose possible. We are not going to give him any of the diuretic for now and we clearly told him that he needs to follow-up with Dr. Hayward 's office early next week to follow-up on his blood pressure. Dr. Arizmendi is going to the the echocardiogram and if that's okay he stable to leave with outpatient follow-up.
--- NOTE | 2017-09-06 07:38 | Patient Discharge Instructions ---
Discharge Instructions General Discharge Information You were seen/treated for: syncope Special Instructions: please follow up with your PCP within one week of discharge. please follow up with your hydramatic specialist within one week of discharge. Please note we have discontinued your medication lisinopril-hydrochlorthiazide due to side effects of cough, we will change it to a different medication called Cozaar ( losartan) please continue to take your medications as prescribed and follow up with your hydramatic specialist about the same. Diet Continue normal diet: No Recommended Diet: Heart Healthy Acute Coronary Syndrome Inclusion Criteria At DC or during hospital stay patient has or had the following: ACS DIAGNOSIS No Discharge Core Measures Meds if any: Prescribed or Continued at Discharge Meds if any: NOT Prescribed or Continued at Discharge Congestive Heart Failure Inclusion Criteria At DC or during hospital stay patient has or had the following: CHF DIAGNOSIS No Discharge Core Measures Meds if any: Prescribed or Continued at Discharge Meds if any: NOT Prescribed or Continued at Discharge Cerebrovascular accident Inclusion Criteria At DC or during hospital stay patient has or had the following: CVA/TIA Diagnosis No Discharge Core Measures Meds if any: Prescribed or Continued at Discharge Meds if any: NOT Prescribed or Continued at Discharge Venous thromboembolism Inclusion Criteria VTE Diagnosis No VTE Type NONE VTE Confirmed by (Test) NONE Discharge Core Measures - Per Current guidelines, there needs to be overlap - treatment for the first 5 days of Warfarin therapy. - If discharged on Warfarin prior to 5 days of - overlap therapy, the patient will need to be - assessed for post discharge needs including - *Post discharge parental anticoagulation - *Warfarin and/or parental anticoagulation education - *Follow up date to check INR post discharge At least 5 days overlap therapy as Inpatient No Meds if any: Prescribed or Continued at Discharge Note: Overlap Therapy is Warfarin and Anticoagulant Meds if any: NOT Prescribed or Continued at Discharge
[2017-09-06 08:14] LABS: ABSOLUTE BASOPHIL COUNT 0 /CUMM (0.0-0.2); ABSOLUTE EOSINOPHIL COUNT 0 /CUMM (0.0-0.7); ABSOLUTE GRANULOCYTE CT 2.2 /CUMM (1.4-6.5); ABSOLUTE LYMPH COUNT 0.7 /CUMM (1.2-3.4); ABSOLUTE MONOCYTE COUNT 0.4 /CUMM (0.10-0.60); BASOPHIL % 0.7 % (0.0-2.0); EOSINOPHIL % 0.8 % (0-5); GRANULOCYTE % 64.9 % (42.2-75.2); HEMATOCRIT 35.2 % (42-52); MEAN CORPUSCULAR HGB CONC 35.2 G/DL (33.0-37.0); MEAN PLATELET VOLUME 8.1 FL (7.4-10.4); RBC DISTRIBUTION WIDTH 12.7 % (11.5-14.5); RED BLOOD CELL CT 3.87 /CUMM (4.70-6.10); WHITE BLOOD CELL COUNT 3.5 /CUMM (4.8-10.8)
[2017-09-06 08:50] LABS: PLATELET COUNT 109 /CUMM (130-400)
[2017-09-06] MEDS ORDERED: COZAAR25 M1 PO (11:18)
--- NOTE | 2017-09-06 14:23 | ECHOCARDIOGRAM REPORT ---
IRINA BOOTH Age: 66 : 1950 Gender: M Exam Date: 09/06/2017 10:42 Exam Location: [facility] Ht (in): 67 Wt (lb): 177 BSA: 1.97 BP: 104 / 64 Ordering Physician: Kymberly Rivera MD Referring Physician: Kymberly Rivera MD Technologist: Rigoberto Carter [facility] Room Number: 180-2 Indications: Syncope and collapse Rhythm: Sinus Technical Quality: Fair FINDINGS Left Ventricle Normal size left ventricle. Borderline concentric left ventricular hypertrophy. No obvious regional wall motion abnormalities. Normal left ventricular ejection fraction visually estimated at >65%. Normal left ventricular diastolic filling pattern for age. Right Ventricle Normal right ventricular size and function. Right Atrium Normal right atrial size. Left Atrium Normal left atrial size. Mitral Valve Structurally normal mitral valve. Trace mitral regurgitation. Aortic Valve Aortic valve not well visualized, grossly normal. No aortic valve stenosis or regurgitation. Tricuspid Valve Structurally normal tricuspid valve. Trace tricuspid regurgitation. Unable to estimate the right ventricular systolic pressure. Pulmonic Valve Pulmonic valve not well visualized, grossly normal. No pulmonic regurgitation. Pericardium No pericardial effusion. Great Vessels Normal size aortic root. CONCLUSIONS Normal size left ventricle. Borderline concentric left ventricular hypertrophy. Normal left ventricular ejection fraction visually estimated at > 65%. Normal left ventricular diastolic filling pattern for age. Normal right ventricular size and function. Normal atrial size. Trace mitral regurgitation. Trace tricuspid regurgitation. Unable to estimate the right ventricular systolic pressure. Shane Arizmendi M.D. (Electronically Signed) Final Date: 06 September 2017 14:23 MEASUREMENTS (Male / Female) Normal Values 2D ECHO LV Diastolic Diameter PLAX 4.4 cm 4.2 - 5.9 / 3.9 - 5.3 cm LV Systolic Diameter PLAX 2.1 cm 2.1 - 4.0 cm LV Fractional Shortening PLAX 52.3 % 25 - 46 % LV Ejection Fraction 2D Teich 83.6 % IVS Diastolic Thickness 1.0 cm LVPW Diastolic Thickness 1.1 cm LV Relative Wall Thickness 0.5 LVOT Diameter 2.0 cm Aortic Root Diameter 2.7 cm LA Systolic Diameter LX 3.5 cm 3.0 - 4.0 / 2.7 - 3.8 cm LV Ejection Fraction MOD BP 71.2 % >= 55 % LV Cardiac Index MOD BP 2142.3 cm/minm LV Diastolic Length 4C 6.7 cm 6.9 - 10.3 cm LV Diastolic Area 4C 25.2 cm LV Diastolic Volume MOD 4C 76.0 cm LV Ejection Fraction MOD 4C 72.4 % LV Stroke Volume MOD 4C 55.0 cm LV Cardiac Index MOD 4C 2265.8 cm/minm LV Systolic Length 4C 5.4 cm LV Systolic Area 4C 11.6 cm LV Systolic Volume MOD 4C 21.0 cm LV Ejection Fraction MOD 2C 74.6 % LV Cardiac Index MOD 2C 2059.9 cm/minm LV Diastolic Volume 4C AL 80.2 cm 85 - 139 / 69 - 109 cm LV Systolic Volume 4C AL 21.1 cm LV Ejection Fraction 4C AL 73.7 % LV Stroke Volume 4C AL 59.1 cm LV Cardiac Index 4C AL 2436.5 cm/minm LV Ejection Fraction 2C AL 76.3 % LV Cardiac Index 2C AL 2158.5 cm/minm LA Volume 38.0 cm 18 - 58 / 22 - 52 cm Ascending Aorta Diameter 3.1 cm DOPPLER AV Peak Velocity 162.0 cm/s AV Peak Gradient 10.5 mmHg LVOT Peak Velocity 101.0 cm/s LVOT Peak Gradient 4.1 mmHg AV Area Cont Eq pk 2.0 cm Mitral E Point Velocity 57.8 cm/s Mitral A Point Velocity 59.2 cm/s Mitral E to A Ratio 1.0 MV Deceleration Time 250.0 ms PV Peak Velocity 64.7 cm/s PV Peak Gradient 1.7 mmHg LV E' Lateral Velocity 9.4 cm/s Mitral E to LV E' Lateral Ratio 6.2 LV E' Septal Velocity 8.4 cm/s Mitral E to LV E' Septal Ratio 6.9
--- NOTE | 2017-09-08 16:56 | Discharge Summary ---
Visit Information Visit Dates Admission Date: 09/04/17 Discharge Date: 09/06/17 Hospital Course Course Attending Physician: Lynne SAAVEDRA,Eula Fleming Primary Care Physician: Aniket Hayward MD Hospital Course: Mr. Bonilla is a 66-year-old male presented to [facility] with chief complaint of syncope. On presentation, he stated that on the way to his doctor's office, he felt lightheaded and sat down and as per his he passed out for a few minutes, did not have any fall or any head trauma, he woke up after his shaking him up, did not have any confusion, loss or bowel or bladder control, he was alert and oriented upon waking up. He notes that he has been feeling relatively lightheaded and dizzy for last few days. He also noted his blood pressure to be a little lower side therefore he himself had his hydrochlorothiazide/lisinopril recently. Past medical history significant for hypertension, palpitations (previous history of stress test which was negative), hepatitis C status post her wanting treatment. He was febrile up to 100.7 on admission, heart rate of 80, blood pressure of 103 /59, respiratory rate of 18. He did not have any white count, H/H of 15.8/45.4, platelets of 138. His sodium was low at 135 (baseline sodium 140), potassium of 3.8, BUN/ creatinine 27/1.6 (baseline creatinine 1.0) Of note he did have segmented neutrophils about 80 and 7 bands CXR did not show any acute cardiopulmonary findings. Head CT did not show any acute intracranial findings. He was admitted to telemetry floor for continuous cardiac monitoring secondary to the presentation of syncope. Problem #1 syncope 2/2 to dehydration + volume loss and decreased PO intake. * For his syncope, he was monitored on cardiac youth nutritional monitor and no abnormal rhythm of the heart was noted.On presentation he was found to have mild fever, bandemia with left shift, along with acute kidney injury and his creatinine was found to be elevated. He was also found to be very dehydrated.His syncope was thought to be secondary to dehydration and decreased by mouth intake.On providing IV hydration, holding his antihypertensive medications, and monitored by mouth intake, he continued to improve. His blood pressure was better and stable. An echocardiogram was also obtained. It showed normal left ventricular size, borderline LVH and EF greater than 65% with no wall motion abnormality. Biomedical Electronics Technician Dr. Arizmendi was on board, and recommended IV hydration. * One more change that was made was his diuretic hydrochlorothiazide was discontinued and lisinopril was changed to losartan due to side effect of dry cough. #2 Acute kidney injury. * His baseline creatinine was 0.9, on presentation his creatinine was elevated to 1.6, the acute kidney injury was thought to be prerenal in nature secondary to dehydration which improved with IV hydration. All nephrotoxic medications were avoided during hospital stay. #3 Hyponatremia. * Mild hyponatremia with sodium of 135, thiazide diuretics were discontinued from home medications, hyponatremia continued to improve and were within normal limit on the day of discharge after IV hydration. #5 transaminitis. * Initially on presentation that was mildly elevated AST, however this was considered to be minimal and needs to be monitored in future if need be. #6 Thrombocytopenia * Patient's baseline platelets were between 230 to 240, however during current presentation his platelets were noted to be 138. This was thought to be secondary to may be a combination of IV hydration and infection. End of his platelets were 138>> 117>109, however no clinical signs of thrombocytopenia and he continued to be stable, will need outpatient follow-up of the platelet count. #6 Hypotension. * This was thought to be secondary to dehydration/infection. It resolved after initial IV hydration. #7 Dry cough. * This was thought to be secondary to chronic use of lisinopril, per Dr. Arizmendi online merchandiser, upon discharge lisinopril was switched to losartan to prevent the side effect of dry cough. Allergies: Coded Allergies: NO KNOWN ALLERGIES (01/18/17) Disposition Summary Disposition Principal Diagnosis: #1 syncope 2/2 to dehydration + volume loss and decreased PO intake. #2 Acute kidney injury. #3 Hyponatremia. #4 transaminitis. Additional Diagnosis: #5 Thrombocytopenia #6 Hypotension. #7 Dry cough. Discharge Disposition: home or self care Discharge Instructions General Discharge Information Code Status: Full Code Patient's Diet: As tolerated Patient's Activity: as tolerated Follow-Up Instructions/Appts: please follow up with your PCP within one week of discharge. please follow up with your online merchandiser within one week of discharge. Please note we have discontinued your medication lisinopril-hydrochlorthiazide due to side effects of cough, we will change it to a different medication called Cozaar ( losartan) please continue to take your medications as prescribed and follow up with your online merchandiser about the same. Medications at Discharge Discharge Medications: Stop taking the following medications: Lisinopril/Hydrochlorothiazide (Lisinopril-Hctz 20-12.5 MG Tab) 20 MG-12.5 MG TABLET ORAL TWICE DAILY Continue taking these medications: Magnesium Oxide (Magnesium) 400 MG CAPSULE 1 Capsule ORAL TWICE DAILY Comments: Last Taken: 09/06/17 Time: 9 AM Start taking the following new medications: Losartan Potassium (Cozaar) 25 MG TABLET 1 Tablet ORAL DAILY Qty = 30 No Refills Comments: NEW MEDICATION START 09/07/17 AM Copies To: Yesy SAAVEDRA,Aniket Fleming; Kyleigh SAAVEDRA,Shane Workman Attending MD Review Statement Documenting Attending: Lynne SAAVEDRA,Eula Fleming
== END 2017-09-06 15:10 | DRG 641 ==
LOC: ERH 13:41 → 1NO 16:27 → ERHI 16:27 → ENRESERV 16:48 → ENTRNSPT 18:24 → EDTRNSPTSTS 18:40 → EDTRNSPT 18:40 → 1NO 18:51 → CMPTRNSPT 19:03 → 1NO 09-05 11:58 → ENPENDDIS 09-06 14:15 → 1NO 09-06 15:10
PROVIDERS: Internal Medicine; Internal Medicine Cardiovascular Disease; Physician Assistant
DX: E86.0 Dehydration (principal); B18.2 Chronic viral hepatitis C; D69.59 Other secondary thrombocytopenia; I95.1 Orthostatic hypotension; J06.9 Acute upper respiratory infection, unspecified; E87.1 Hypo-osmolality and hyponatremia; R05 Cough; I10 Essential (primary) hypertension
CPT/HCPCS: 1NSP; 36592; 71046; 81001; 82436; 87040; 87086; 93005; 93010; 93306; 96360; 99291